=== PATIENT | male | born 1975 | race Caucasian/White ===

== ENCOUNTER → 2019-03-30 | Outpatient (CLI) | payer MEDICAID, SELFPAY ==
[2019-03-18 16:26] VITALS: BMI 29.1
--- NOTE | 2019-03-30 11:38 | US_ITS ---
STUDY: SCROTUM ULTRASOUND REASON FOR EXAM: Male, 44 years old. Pain TECHNIQUE: Ultrasound evaluation of the scrotum was performed with color Doppler and static moore-scale imaging. COMPARISON: None. FINDINGS: Right testicle measures 4.2 x 3.0 x 2.5 and left testicle measures 3.9 x 2.7 x 2.1. Testes are symmetric and homogeneous with normal, symmetric vascularity. No testicular mass is present. 4 mm right epididymal head cyst. Epididymides are otherwise unremarkable with normal vascularity. No hydrocele or varicocele is present. US/Testicular with Arterial Flow IMPRESSION: 1. Homogeneous normally vascularized testicles. END OF IMPRESSION: Electronically Signed: Marlon Alexander, at 13:48 EDT Tel , Service support ,
== END | disposition home or self-care (01) ==
LOC: US 11:37
PROVIDERS: Family Provider Internal Medicine; PCP Internal Medicine; Referring Provider Internal Medicine; Visit Provider Internal Medicine
DX: N50.82 Scrotal pain (principal)
CPT/HCPCS: 76870; 93976

== ENCOUNTER → 2019-07-14 11:01 | Outpatient (CLI) | payer MEDICAID, SELFPAY ==
[2019-07-14 10:18] VITALS: BMI 29.9
[2019-07-14 12:32] LABS: Erythrocyte Sedimentation Rate 11 mm/hr (0-15)
[2019-07-14 12:48] LABS: CRP < 2.90 mg/L (0.0-3.0); Rheumatoid Factor < 10.0 IU/mL (<15)
== END ==
PROVIDERS: PCP Internal Medicine; Referring Provider Internal Medicine; Visit Provider Internal Medicine
DX: M19.90 Unspecified osteoarthritis, unspecified site (principal)
CPT/HCPCS: 36415; 85652; 86140; 86431